=== PATIENT | male | born 1965 | race Caucasian/White ===

== ENCOUNTER 2016-11-29 05:03 | Emergency (ER) | payer SELFPAY ==
[~2016-11-29] VITALS: Ht 172.7 cm; Wt 77.0 kg
[2016-11-29 05:06] VITALS: BP 137/90; PULSE 69; RESP 15; TEMP 98.2; O2SAT 99
[2016-11-29] MEDS ORDERED: CLIN1CAP5 PO (05:24)
[2016-11-29] MEDS ORDERED: DICL75TA PO (05:24)
--- NOTE | 2016-11-29 05:24 | PD ---
HPI Chief Complaint: Oral / Dental Pain or Problem Time Seen by Provider: 05:20 Travel History International Travel<30 days: No Contact w/Intl Traveler<30days: No Traveled to known affect area: No History of Present Illness HPI Patient comes in for evaluation of right upper dental pain that began yesterday morning Describes pain as a throbbing aching pain without radiation. Patient tried taking Motrin with minimal relief. Pain is worse with eating or drinking. Patient denies any fever or difficulty swallowing. Patient states he last saw a dentist a couple of months ago to have other teeth extracted. Patient states he was going to try and wait to get in with a dentist later today however his friends and family had him concerned and decided to come to the emergency department. [facility] Past Medical History Medical History: Denies Significant Hx Social History Alcohol Use: Yes Tobacco Use: Yes Substance Use: No Allergies-Medications (Allergen,Severity, Reaction): Coded Allergies: No Known Allergies (Unverified , 11/29/16) Reported Meds & Prescriptions Reported Meds & Active Scripts Active Diclofenac Sodium DR (Diclofenac Sodium) 75 Mg Tabdr 75 Mg PO Q12HR PRN Clindamycin (Clindamycin HCl) 150 Mg Cap 2 Tab PO Q6H 10 Days Review of Systems Except as stated in HPI: all other systems reviewed are Neg Physical Exam Narrative GENERAL: Well-developed, well nourished, in no acute distress, and non-ill appearing. SKIN: Warm and dry. HEAD: Atraumatic. Normocephalic. EYES: Pupils equal and round. EOMI. No scleral icterus. No injection or drainage. ENT: No nasal bleeding or discharge. Mucous membranes pink and moist. Poor dentition with no visible or palpable abscess. Floor the mouth, submandibular, and submental are all soft to palpation. NECK: Trachea midline. No cervical lymphadenopathy. Supple. No nuclear rigidity. RESPIRATORY: No accessory muscle use. No respiratory distress. MUSCULOSKELETAL: No obvious deformities. No clubbing. No cyanosis. No edema. Full range of motion. NEUROLOGICAL: Awake and alert. No obvious cranial nerve deficits. Motor grossly within normal limits. Normal speech. PSYCHIATRIC: Appropriate mood and affect; insight and judgment normal. Data Data Last Documented VS Vital Signs Date Time Temp Pulse Resp B/P Pulse Ox O2 Delivery O2 Flow Rate FiO2 11/29/16 05:06 98.2 69 15 137/90 99 Room Air Orders Clindamycin (Cleocin) (11/29/16 05:30) MDM Medical Decision Making Medical Screen Exam Complete: Yes Emergency Medical Condition: Yes Differential Diagnosis Dental abscess, dental infection, dentalgia, other Narrative Course The patient presented with dental pain. There is no fever. There is no significant facial swelling or evidence of cellulitis. There is poor dentition but no evidence of drainable abscess at this time. There is no evidence of significant deep or invading abscess at this time. The patient will be placed on antibiotics and pain medication. The patient was instructed to follow up with a dentist. The patient was given the dental referral sheet. Warnings were discussed with the patient regarding worsening of infection. The patient is to return if pain worsens, develops progressive swelling or facial redness or fever. The patient agrees with plan. Patient in no obvious distress upon re-evaluation. Patient was asked if they wanted to speak to my attending, which the patient did not wish to do at this time. Any questions/concerns in reference to patient diagnosis/condition discussed and clarified prior to patient's discharge. Reinforced sheer importance of close follow up with patient's primary physician or primary care clinic. Instructed patient to return to ED immediately, if symptoms return/ worsen. Pt showed understanding of above instructions. Further instructions and recommendations were detailed in discharge paperwork. Pt ambulated without difficulty out of ED at discharge. Diagnosis Primary Impression: Dental infection Patient Instructions: Dental Abscess (ED), Dental Caries (DC), General Instructions Additional Instructions: Follow-up with your primary care physician and dentist as soon as possible. Rinse mouth with warm salt water gargles. Take all medication as prescribed. Return to the emergency department if symptoms get worse. Med/Other Pt SpecificInfo: Prescription(s) given Scripts Diclofenac Sodium DR 75 Mg Tabdr75 Mg PO Q12HR PRN (PAIN SCALE 1 TO 10) #14 TAB Ref 0 Prov:Clive Giron MD 11/29/16 Clindamycin 150 Mg Cap2 Tab PO Q6H 10 Days Ref 0 Prov:Clive Giron MD 11/29/16 Disposition: 01 DISCHARGE HOME Condition: Stable Herson Parikh Nov 29, 2016 05:24
[2016-11-29] MEDS ORDERED: CLINDAMYCIN 150 MG CAP PO ONE (05:30)
== END 2016-11-29 06:02 | disposition home or self-care (01) ==
LOC: NEPB 05:03
DX: K04.7 Periapical abscess without sinus (principal); Z72.0 Tobacco use
CPT/HCPCS: 99282

== ENCOUNTER 2018-02-08 14:17 | Emergency (ER) | payer SELFPAY ==
[~2018-02-08] VITALS: Ht 172.7 cm; Wt 76.0 kg
[~2018-02-08 14:17] MED LIST: CLIN150C14 PO; DICL75TA PO
[2018-02-08 14:54] VITALS: BP 122/63; PULSE 90; RESP 17; TEMP 98.2; O2SAT 98
[2018-02-08] MEDS ORDERED: CLINDAMYCIN 600 MG/NS PREMIX 50 ML IV ONE (15:30)
[2018-02-08] MEDS ORDERED: LIDOCAINE HCL 1% 20 ML VIAL INFIL ONE (15:30)
[2018-02-08] MEDS ORDERED: CLIN150C14 PO (15:59)
[2018-02-08] MEDS ORDERED: NAPR500T2 PO (15:59)
--- NOTE | 2018-02-08 15:59 | PD ---
HPI Chief Complaint: Skin Problem Time Seen by Provider: 15:21 Travel History International Travel<30 days: No Contact w/Intl Traveler<30days: No Traveled to known affect area: No History of Present Illness HPI Is a 52-year-old man presents to the emergency department complaining of abscess to the right leg behind the knee. Started couple days ago a small bump. Worse over the past couple days. 2 days ago the leg got more swollen. Hot and red. He has been picking on he has had some drainage from it. No fevers. No history of previous similar problems. No other complaints. History Past Medical History Medical History: Denies Significant Hx Tetanus Vaccination: Unknown Influenza Vaccination: No Social History Alcohol Use: Yes Tobacco Use: Yes (11/29 PPD) Allergies-Medications (Allergen,Severity, Reaction): Coded Allergies: No Known Allergies (Unverified Adverse Reaction, Unknown, 02/08/18) Reported Meds & Prescriptions Reported Meds & Active Scripts Active No Active Prescriptions or Reported Medications Review of Systems Except as stated in HPI: all other systems reviewed are Neg Physical Exam Narrative GENERAL: 52-year-old man, no acute distress. SKIN: Warm and dry. CARDIOVASCULAR: Warm and well perfused. RESPIRATORY: Normal rate and effort. MUSCULOSKELETAL: Right calf is swollen erythematous and red. There is focal area of induration just distal to the popliteal fossa with a central pustule and scabbing. There is no definite area of fluctuance. NEUROLOGICAL: Awake and alert. No gross deficits. Data Data Last Documented VS Vital Signs Date Time Temp Pulse Resp B/P (MAP) Pulse Ox O2 Delivery O2 Flow Rate FiO2 02/08/18 14:54 98.2 90 17 122/63 (82) 98 Orders Orders Lidocaine 1% Inj (Xylocaine 1% Inj) (02/08/18 15:30) Ed Poc Ultrasound (02/08/18 ) Clindamycin 600 Mg/Ns Premix (Cleocin 60 (02/08/18 15:30) Iv Access Insert/Monitor (02/08/18 15:28) [facility] Medical Decision Making Medical Screen Exam Complete: Yes Emergency Medical Condition: Yes Interpretation(s) [id number] ultrasound: Focused soft tissue ultrasound was performed by me at the bedside identifies a small area of hypoechoic fluid by 1 x 1 cm just in the area of maximal induration. Differential Diagnosis Abscess, cellulitis, other Narrative Course Medical decision making 51-year-old man with a small abscess in the posterior calf with a large area of surrounding induration and cellulitis. Will give IV antibiotics, abscess drained at the bedside with minimal purulent output. Keep leg elevated. Antibiotics. Return for worsening symptoms. Additional Instructions: Take clindamycin as prescribed. Keep leg elevated above your head. Apply warm compresses 4 5 times daily to encourage drainage. Return to the emergency department for any worsening pain swelling fevers or any other new or worsening symptoms. Med/Other Pt SpecificInfo: Prescription(s) given Scripts Naproxen (Naproxen) 500 Mg Tab 500 MG PO BID, #20 TAB 0 Refills Prov: Drake Jackson MD 02/08/18 Clindamycin (Clindamycin) 150 Mg Cap 2 TAB PO Q6H for Infection for 10 Days, CAP 0 Refills Prov: Drake Jackson MD 02/08/18 Disposition: 01 DISCHARGE HOME Condition: Stable Drake Jackson MD Feb 08, 2018 15:59
[2018-02-08] MEDS ORDERED: oxyCODONE/ACETAMINOPHEN 5 MG/325 MG TAB PO ONE (16:45)
--- NOTE | 2018-02-08 17:04 | PD ---
Data Data Last Documented VS Vital Signs Date Time Temp Pulse Resp B/P (MAP) Pulse Ox O2 Delivery O2 Flow Rate FiO2 02/08/18 14:54 98.2 90 17 122/63 (82) 98 Orders Orders Lidocaine 1% Inj (Xylocaine 1% Inj) (02/08/18 15:30) Ed Poc Ultrasound (02/08/18 ) Clindamycin 600 Mg/Ns Premix (Cleocin 60 (02/08/18 15:30) Iv Access Insert/Monitor (02/08/18 15:28) Ed Discharge Order (02/08/18 15:59) Wound Culture And Gram Stain (02/08/18 16:28) Oxycodone-Acetamin 5-325 Mg (Percocet (02/08/18 16:45) MDM Supervised Visit with MARTITA: No Diagnosis Primary Impression: Cellulitis Patient Instructions: General Instructions, Cellulitis (ED) Departure Forms: Tests/Procedures Additional Instruction: Take clindamycin as prescribed. Keep leg elevated above your head. Apply warm compresses 4 5 times daily to encourage drainage. Return to the emergency department for any worsening pain swelling fevers or any other new or worsening symptoms. Scripts Naproxen (Naproxen) 500 Mg Tab 500 MG PO BID, #20 TAB 0 Refills Prov: Drake Jackson MD 02/08/18 Clindamycin (Clindamycin) 150 Mg Cap 2 TAB PO Q6H for Infection for 10 Days, CAP 0 Refills Prov: Drake Jackson MD 02/08/18 Disposition: 01 DISCHARGE HOME Condition: Stable Drake Jackson MD Feb 08, 2018 17:04
== END 2018-02-08 17:07 | disposition home or self-care (01) ==
LOC: NEPD 14:17
DX: L02.415 Cutaneous abscess of right lower limb (principal); L03.115 Cellulitis of right lower limb; B95.62 Methicillin resistant Staphylococcus aureus infection as the cause of diseases classified elsewhere; F17.210 Nicotine dependence, cigarettes, uncomplicated
CPT/HCPCS: 10060; 86403; 87070; 87186; 87205; 96374